=== PATIENT | male | born 1970 | race Caucasian/White ===

== ENCOUNTER 2024-04-27 16:02 | Outpatient (CLI) | payer BC, SELFPAY ==
[2024-04-29 13:55] LABS: TB Interpretation Negative (Negative); TB2 Ag minus Nil 0.15 IU/mL
== END 2024-04-27 16:03 | disposition home or self-care (01) ==
LOC: LBO 16:03
PROVIDERS: Visit Provider Family Medicine
DX: Z11.1 Encounter for screening for respiratory tuberculosis (principal)
CPT/HCPCS: 36415; 86480

== ENCOUNTER 2024-04-29 18:15 | Outpatient (CLI) | payer BC, SELFPAY ==
[2024-04-29 16:50] LABS: ALT 59 U/L (16-63); AST 25 U/L (15-37); Albumin 3.9 g/dL (3.4-5.0); Alkaline Phosphatase 68 U/L (46-116); Anion Gap 7.1 mmol/L (3-11); BUN 11 mg/dL (7-18); Bilirubin, Total 0.16 mg/dL (0.2-1.0); CO2 32.9 mmol/L (21.0-32.0); CREATININE 1.2 mg/dL (0.70-1.30); Calcium 9.6 mg/dL (8.5-10.1); Chloride 102 mmol/L (98-107); Estimated GFR 71.42 (mL/min/1.73m2); Glucose 102 mg/dL (74-106); Potassium 3.9 mmol/L (3.5-5.1); Sodium 142 mmol/L (136-145); Total Protein 8.1 g/dL (6.4-8.2)
[2024-04-29 17:04] LABS: Hemoglobin A1C 5.4 % (<5.7)
== END 2024-04-29 18:16 | disposition home or self-care (01) ==
LOC: LBO 18:16
PROVIDERS: Visit Provider Family Medicine
DX: E11.9 Type 2 diabetes mellitus without complications (principal)
CPT/HCPCS: 36415; 80053; 83036